=== PATIENT | male | born 1965 | race African-American/Black ===

== ENCOUNTER → 2022-02-28 | Outpatient (CLI) | payer OTHER ==
--- NOTE | 2022-02-28 08:57 | XR ---
EXAMINATION TYPE: XR femur RT DATE OF EXAM: 02/28/2022 COMPARISON: None HISTORY: Left leg and right leg with burning sensation x5-6 years TECHNIQUE: 2 view right femur FINDINGS: Degenerative changes are at the right hip. Some narrowing of the joint space is present. No acute fracture or dislocation is evident. Vascular calcification is noted. IMPRESSION: 1. No acute osseous abnormality right femur. 2. Degenerative changes right hip
--- NOTE | 2022-02-28 08:58 | XR ---
EXAMINATION TYPE: XR Hip Complete RT DATE OF EXAM: 02/28/2022 COMPARISON: None HISTORY: Burning sensation TECHNIQUE: 2 view right hip FINDINGS: Femoral head articulates with the acetabulum. Minimal joint space narrowing may be present. Some femoral head spurring is noted. No acute fracture or dislocation is evident. IMPRESSION: 1. Mild degenerative changes right hip
--- NOTE | 2022-02-28 09:00 | XR ---
EXAMINATION TYPE: XR knee complete LT DATE OF EXAM: 02/28/2022 COMPARISON: None HISTORY: Burning sensation pain TECHNIQUE: 3 view left knee supplemented with sunrise view FINDINGS: Degenerative joint changes are within the left knee. There is mild narrowing of the medial compartment joint space. Medial femoral condylar spurring is present. No joint effusion is evident. P osterior patellar spurring is noted. IMPRESSION: 1. Mild to moderate degenerative changes left knee.
--- NOTE | 2022-02-28 09:02 | XR ---
EXAMINATION TYPE: XR lumbosacral spine min 4V DATE OF EXAM: 02/28/2022 COMPARISON: None HISTORY: Pain right and left leg TECHNIQUE: 5 view lumbar spine FINDINGS: There are 5 lumbar-type vertebral bodies. The pedicles are intact. Mild facet degenerative changes present. No spondylolytic defects are evident. Disc heights are preserved. Vertebral body hei ghts are preserved. Spondylosis is present. MRI can be performed as clinically indicated IMPRESSION: 1. Spondylosis. 2. Mild degenerative facet changes
== END | disposition home or self-care (01) ==
LOC: RADXRMAIN 07:40
PROVIDERS: ATTEND Family Medicine
DX: M47.817 Spondylosis without myelopathy or radiculopathy, lumbosacral region (principal); M17.12 Unilateral primary osteoarthritis, left knee; M16.11 Unilateral primary osteoarthritis, right hip
CPT/HCPCS: 72110; 73502

== ENCOUNTER → 2022-03-02 | Outpatient (CLI) | payer OTHER ==
--- NOTE | 2022-03-08 08:43 | US ---
EXAMINATION TYPE: US arterial LE multi level DATE OF EXAM: 03/02/2022 12:54 PM CLINICAL HISTORY: R20.2 PARESTHESIA OF SKIN. Right leg numbness and tingling History of: Smoker: Yes Hypertension: No Diabetic: No Hyperlipidemia: No TIA/CVA: No Previous Vascular Surgery: No CAD: No GA: No Doppler Waveforms: Right: Triphasic Left: Triphasic Right Brachial Pressure: 122 Left Brachial Pressure: 119 Ankle-Brachial Indices: Right: 1.3 Left: 1.21 Toe Brachial Indices: Right: 0.93 Left: 0.84 IMPRESSION: Normal study.
== END | disposition home or self-care (01) ==
LOC: RADUSWWP 11:42
PROVIDERS: ATTEND Family Medicine
DX: R20.2 Paresthesia of skin (principal); R20.0 Anesthesia of skin; Z87.891 Personal history of nicotine dependence
CPT/HCPCS: 93922

== ENCOUNTER → 2022-04-05 | Outpatient (CLI) | payer OTHER ==
--- NOTE | 2022-04-05 09:47 | MR ---
EXAMINATION TYPE: MR lumbar spine wo con DATE OF EXAM: 04/05/2022 8:34 AM COMPARISON: Radiograph 02/28/2022 CLINICAL INDICATION:Male, 56 years old with history of R20.2 PARESTHESIA OF SKIN Lower back pain, rad iates down right leg. TECHNIQUE: Multi planar, multi sequence imaging was performed utilizing: T1-weighted, T2-weighted, a nd turbo inversion recovery imaging of the lumbar spine. IV Contrast: None. FINDINGS: Alignment: The lumbar vertebral bodies have preserved heights and alignment. Cord: The conus medullaris and the distal spinal cord appear unremarkable with regards to their signa l intensity and morphology. Bones/Discs: Bone signal is within normal limits. No abnormal bony edema on inversion recovery sequen edgar. Multilevel degenerative disc disease is noted and most pronounced at the L5-S1 with disc space n arrowing. Intervertebral disc signal is maintained. T12-L1: No evidence of significant spinal canal stenosis or neural foraminal stenosis. L1-L2: No evidence of significant spinal canal stenosis or neural foraminal stenosis. L2-L3: Disc bulge and facet joint arthropathy result in mild to moderate spinal canal and moderate bi lateral neural foraminal stenosis. L3-L4: Disc bulge and facet joint arthropathy result in [id number] spinal canal and moderate bi lateral neural foraminal stenosis. L4-L5: Disc bulge and facet joint arthropathy result in moderate spinal canal stenosis with bunching of the cauda equina and severe bilateral neural foraminal stenosis. L5-S1: Disc bulge and facet joint arthropathy result in mild spinal canal and severe bilateral neural foraminal stenosis. The disc bulge does closely approximate forming nerves in the spinal canal. Other findings: Right renal high T2 cyst. IMPRESSION: 1. L4-L5 and L5-S1 severe bilateral neural foraminal stenosis. 2. L2-L3 and L3-L4 moderate bilateral neural foraminal stenosis. 3. L4-L5 moderate spinal canal stenosis.
== END | disposition home or self-care (01) ==
LOC: RADMRIMAIN 07:33
PROVIDERS: ATTEND Family Medicine
DX: M48.061 Spinal stenosis, lumbar region without neurogenic claudication (principal); M99.73 Connective tissue and disc stenosis of intervertebral foramina of lumbar region; R20.2 Paresthesia of skin
CPT/HCPCS: 72148

== ENCOUNTER → 2022-08-29 | Outpatient (CLI) | payer BC, OTHER ==
--- NOTE | 2022-08-29 09:03 | XR ---
EXAMINATION TYPE: XR chest 2V DATE OF EXAM: 08/29/2022 8:54 AM COMPARISON: None TECHNIQUE: XR chest 2V Frontal and lateral views of the chest. CLINICAL INDICATION:Male, 57 years old with history of PRE SURGICAL TESTING; FINDINGS: Lungs/Pleura: There is flattening of the diaphragm with increased lucency of the lungs. No evidence o f pneumothorax, pleural effusion or focal consolidation. Pulmonary vascularity: Unremarkable. Heart/mediastinum: Cardiomediastinal silhouette is unremarkable. Musculoskeletal: No acute osseous pathology. IMPRESSION: 1. No acute cardiopulmonary disease process. 2. COPD changes.
[2022-08-29 16:01] LABS: Basophils # (A) 0.03 X 10*3/uL (0.00-0.10); Basophils % (A) 0.8 %; Eosinophils % (A) 5.1 %; HCT 42.9 % (39.6-50.0); HGB 14.1 d/dL (12.0-15.0); Lymphocytes # (A) 1.23 X 10*3/uL (0.90-5.00); Lymphocytes % (A) 31.5 %; MCH 28.1 pg (27.0-32.0); MCHC 32.9 d/dL (32.0-37.0); MCV 85.6 FL (80.0-97.0); Mean Platelet Volume 10.6 FL (9.5-12.2); Monocytes # (A) 0.47 X 10*3/uL (0.20-1.00); NRBC Per 100 WBC 0 X 10*3/uL (0.00-0.01); Neutrophils # (A) 1.97 X 10*3/uL (1.80-7.70); Neutrophils % (A) 50.3 %; Platelet Count 198 X 10*3/uL (140-440); RBC 5.01 X 10*6/uL (4.40-5.60); RDW 14.1 % (11.5-14.5); WBC 3.91 X 10*3/uL (4.50-10.00)
[2022-08-29 16:31] LABS: Blood Urea Nitrogen 16.4 mg/dL (9.0-27.0); Calcium 9.3 mg/dL (8.7-10.3); Carbon Dioxide 26.1 mmol/L (21.6-31.8); Chloride 107 mmol/L (96-109); Glucose 81 mg/dL (70-110); Sodium 144 mmol/L (135-145)
[2022-08-29 21:08] LABS: Appearance,Urine Clear (Clear); Bilirubin,Urine Negative (Negative); Blood,Urine Negative (Negative); Color,Urine Yellow (Yellow); Ketones,Urine Negative (Negative); Nitrite,Urine Negative (Negative); PH, Urine 5.5; Specific Gravity,Urine 1.024 (1.001-1.030); Urobilinogen,Urine 0.2 E.U./DL
== END | disposition home or self-care (01) ==
LOC: LABPAT 08:38
PROVIDERS: ATTEND Urology
DX: Z01.818 Encounter for other preprocedural examination (principal); J44.9 Chronic obstructive pulmonary disease, unspecified; C61 Malignant neoplasm of prostate; I45.19 Other right bundle-branch block; R00.1 Bradycardia, unspecified; R94.31 Abnormal electrocardiogram [ECG] [EKG]; R31.29 Other microscopic hematuria
CPT/HCPCS: 71046; 80048; 81003; 85025; 87086; 93005

== ENCOUNTER 2022-09-05 09:42 | Day surgery (SDC) | payer BC, OTHER ==
[2022-08-29 13:28] VITALS: BMI 22.7
--- NOTE | 2022-09-03 12:51 | P.HPIHPCON ---
History of Present Illness H&P Date: 09/03/22 Chief Complaint: prostate cancer This is a 57-year-old male with history of [place] 7 prostate cancer. Option of a robotic radical prostatectomy versus radiation therapy was discussed with him in detail. He agreed to proceed with a robotic radical prostatectomy. Aware of the risk which includes but not limited to bleeding, infection, urinary incontinence, erectile dysfunction, injury to nearby organs. Risk of anesthesia was also discussed with him. Aware of risk of cancer recurrence and potential of needing additional treatments. Discussed also the need a postoperative surveillance. He understood all the risk and agreed to proceed Consent for Procedure: I have explained the operation/procedure to the patient, including the risks, benefits, side effects, alternative therapies (including not receiving the proposed treatment or service), the likelihood of the patient achieving his/her goals, and potential recuperation problems for the procedure/sedation/analgesia, as well as any blood products, if indicated. I also explained to the patient the risks, benefits and side effects of the alternatives, as well as the risks related to not receiving the proposed procedure, care, treatment, or services. Past Medical History Past Medical History: Cancer, Osteoarthritis (OA) Additional Past Medical History / Comment(s): Current prostate cancer. History of Any Multi-Drug Resistant Organisms: None Reported Additional Past Surgical History / Comment(s): Colonoscopy. Past Anesthesia/Blood Transfusion Reactions: No Reported Reaction Past Psychological History: No Psychological Hx Reported Smoking Status: Current every day smoker Past Alcohol Use History: Occasional Additional Past Alcohol Use History / Comment(s): Started smoking at 15-16 yrs of age, currently smokes 1 pdd every 3 days. Past Drug Use History: None Reported - Past Family History Mother Family Medical History: No Reported History Medications and Allergies Home Medications Medication Instructions Recorded Confirmed Type Meloxicam 7.5 mg PO DAILY 08/29/22 08/29/22 History Allergies Allergy/AdvReac Type Severity Reaction Status Date / Time No Known Allergies Allergy Verified 08/29/22 13:12 Surgical - Exam - General no distress, no pain - Abdomen Abdomen: soft, non tender - Psychiatric oriented to time, oriented to person, oriented to place Assessment and Plan Assessment: -OR for RALP and PLND
[~2022-09-05 09:42] MED LIST: DEXAMETHASONE SOD PHOSPHATE 4 MG/ML 1 ML VIAL IV ONE; HEPARIN SODIUM,PORCINE/PF 5,000 UNIT/0.5 ML SYRINGE SQ PRN; HYDROmorphone 0.5 MG/0.5 ML SYRINGE IVP PRN; LIDOCAINE 1% (10MG/ML) FOR IV START INTRADERMA PRN; MIDAZOLAM 2 MG/2 ML VIAL IV PRN; ONDANSETRON 4 MG/2 ML VIAL IVP ONE
[2022-09-05] MEDS: LACTATED RINGERS 1,000 ML IV SCH (10:15)
[2022-09-05] MEDS ORDERED: MIDAZOLAM 2 MG/2 ML VIAL IVP ONE ×2 (10:34→10:37)
[2022-09-05] MEDS ORDERED: fentaNYL (PF) 50 MCG/ML 2 ML AMP IVP ONE ×2 (10:35→10:37)
--- NOTE | 2022-09-05 10:50 | P.ANPRN ---
Procedure Note - Anesthesia - Nerve Block Performed Bilateral Erector Spinae Single Time Out Performed: Yes Date of Procedure: 09/05/22 Procedure Start Time: 10:34 Procedure Stop Time: 10:44 Location of Patient: PreOp Indication: Acute Post-Operative Pain, Requested by Surgeon (Austin GRIGGS) Specifically requested for management of pain by DrDaniel: Arvind Glaser Sedation Type: Sedate with meaningful contact maintained Preparation: Sterile Prep Position: Prone Needle Types: Pajunk Needle Gauge: 21 Ultrasound used to visualize needle placement: Yes Ultrasound used to observe medication spread: Yes Injectate: 0.5% Ropivacaine (see comment for volume) (20 ML + 10 ML ns + 4MG DEXAMETHASONE PER SIDE) Blood Aspirated: No Pain Paresthesia on Injection Noted: No Resistance on Injection: Normal Image Stored and Saved: Yes Events: Uneventful and Well Tolerated
[2022-09-05] MEDS ORDERED: fentaNYL (PF) 50 MCG/ML 2 ML AMP ONE (11:47)
[2022-09-05] MEDS ORDERED: LIDOCAINE 4% LTA KIT (4 ML) TOPICAL ONE (11:47)
[2022-09-05] MEDS ORDERED: PROPOFOL 10 MG/ML 20 ML VIAL IV ONE (11:47)
[2022-09-05] MEDS ORDERED: DEXAMETHASONE SOD PHOSPHATE 4 MG/ML 1 ML VIAL ONE (11:47)
[2022-09-05] MEDS ORDERED: ROPIVACAINE 5 MG/ML 30 ML VIAL ONE (11:47)
[2022-09-05] MEDS ORDERED: SODIUM CHLORIDE 0.9% (PF) 10 ML VIAL ONE (11:47)
[2022-09-05] MEDS ORDERED: ROCURONIUM 10 MG/ML (5 ML VIAL) IV ONE (11:47)
[2022-09-05] MEDS ORDERED: LIDOCAINE 2% INJ 20 MG/ML (2 ML VIAL) ONE (11:47)
[2022-09-05] MEDS ORDERED: SUCCINYLCHOLINE CHLORIDE 200 MG/10 ML VIAL IV ONE (11:47)
[2022-09-05] MEDS ORDERED: HYDROmorphone (PF) 1 MG/ML ONE (11:47)
[2022-09-05] MEDS ORDERED: MIDAZOLAM 2 MG/2 ML VIAL ONE (11:47)
[2022-09-05] MEDS ORDERED: NEOSTIGMINE 1 MG/ML 10 ML VIAL ONE (11:47)
[2022-09-05] MEDS ORDERED: GLYCOPYRROLATE 0.2 MG/ML 2 ML VIAL ONE (11:47)
[2022-09-05] MEDS ORDERED: ePHEDrine 50 MG/ML 1 ML VIAL ONE (11:47)
[2022-09-05] MEDS ORDERED: ONDANSETRON 4 MG/2 ML VIAL IVP PRN (12:05)
[2022-09-05] MEDS ORDERED: HYDROcodone/APAP 5-325MG 1 EACH TAB PO PRN (12:06)
[2022-09-05] MEDS ORDERED: LACTATED RINGERS 1,000 ML IV ONE (12:26)
[2022-09-05] MEDS ORDERED: BUPIVACAINE (PF) 0.25% 30 ML VIAL SQ ONE ×2 (12:52)
--- NOTE | 2022-09-05 15:13 | P.OP ---
Date of Procedure: 09/05/22 Preoperative Diagnosis: prostate cancer Postoperative Diagnosis: Same Procedure(s) Performed: Robotic radical prostatectomy, pelvic lymph node dissection Implants: none Anesthesia: JOSÉ LUISA Surgeon: Arvind Glaser Estimated Blood Loss (ml): 100 Pathology: other (Prostate, bilateral seminal vesicle, bilateral pelvic lymph nodes) Condition: stable Disposition: PACU Indications for Procedure: This is a 57-year-old male with history of [place] 7 prostate cancer. Option of a robotic radical prostatectomy versus radiation therapy was discussed with him in detail. He agreed to proceed with a robotic radical prostatectomy. Aware of the risk which includes but not limited to bleeding, infection, urinary incontinence, erectile dysfunction, injury to nearby organs. Risk of anesthesia was also discussed with him. Aware of risk of cancer recurrence and potential of needing additional treatments. Discussed also the need a postoperative surveillance. He understood all the risk and agreed to proceed Operative Findings: uncomplicated robotic radical prostatectomy with pelvic lymph node dissection Description of Procedure: After preoperative antibiotics were started, the patient was taken to the operating room. Anesthesia was induced and the patient was placed in a supine position, with adequate padding of the pressure points, shoulders, back, legs and arms. He was then prepped and draped in the standard fashion. A critical pause was performed using two patient identifiers. A 16F cantu catheter was placed to gravity drainage. A pneumo-peritoneum was created with placement of a Veress needle to 20 mm Hg without complication, and a 8 Fr trocar was placed above the umbillicus. Under direct vision a 8mm robotic ports was placed lateral to each rectus slightly below the camera port. The left iliac fossa 8mm port was placed. The right housing assistant property manager right iliac fossa 12mm port and right paramedian 5mm portwere placed. After the patient was placed in the trendelenberg position, the robot was then docked to the 8mm robotic ports and then each robotic arm and tower was checked in relation to the patient's legs and hands to avoid inadvertent compression. The peritoneal cavity was inspected. An inverted U-shaped incision began laterally to the left medial umbilical ligament and extended high across the midline to the right umbilical ligament. The limbs of the "U" extended to the level of the vasa on both sides. We next developed the preperitoneal space and the space of Retzius. Cautery was used to dissected the bladder away from the prostate. After the anterior bladder neck was incised and the bladder entered the the posterior bladder neck was exposed and the ureteral orifces identified. The posterior bladder neck was then incised and dissected away from the prostate. The vas and the seminal vesicles were now exposed and dissected to their insertions into the prostate and were not spared. The posterior layer of the Denonvillier's fascia was incised to enter ivone the plane between prostate and perirectal fat. Each lateral pedicle was controlled with clips and cautery for hemostasis. Partial nerve preservation was performed bilaterally. The puboprostatic l igament was incised where it inserted into the apex of the prostate and a plane between urethra and dorsal venous complex developed to expose the anterior urethral surface. The anterior wall of the urethra was transected with the cut setting a few millimeters distal to the apex of the prostate. The dorsal vein was ligated using 3-0 V lock bilateral obturator and external iliac lymph node packets were carefully dissected after careful visualization of the hypogastric artery and obturator nerve. There was careful attention paid to hemostasis with judicious use of cautery. Of note patient had very limited lymphatic tissue along the left side The urethrovesical anastomosis was performed . the posterior denovillers was reapproximated using 3-0 V lock. A 9 and 6 inch 3-0 V-Lock suture was used to anastomose the urethra and bladder, starting at the 6:00 posterior position. Mucosa was secured in every stitch, to ensure a mucosa to mucosa anastomosis. The stitch was regularly cinched and the anastomosis tightened. Care was taken to not violate the ureteral orifices. The Cantu catheter was advanced, the bladder filled, and the anastomosis was tested, as described above. Anastomsis was watertight at 150 mL The periumbilical fascia was closed with 1-0-PDS suture in figure of 8 fashion All ports were closed with a subcuticular 4-0 monocryl and Dermabond. Sponge, instrument, and needle counts were correct at the end of the case x2. All specimens including prostate and lymph nodes were sent to pathology for diagnosis and will be available in a week. The patient tolerated the surgery well and without complication. He awoke without difficulty and was taken to the recovery room in stable condition
[2022-09-05] MEDS: KETOROLAC 15 MG/ML 1 ML VIAL IVP SCH ×2 (16:10→23:52)
[2022-09-05] MEDS: DEXTROSE 5%-0.45% NACL 1,000 ML IV SCH ×2 (17:54→18:07)
[2022-09-05] MEDS: HEPARIN SODIUM,PORCINE/PF 5,000 UNIT/0.5 ML SYRINGE SQ SCH ×2 (17:54→23:52)
[2022-09-05] MEDS: HYDROmorphone 1 MG/ML 1 ML SYRINGE IVP PRN ×2 (18:53→21:18)
[2022-09-06] MEDS: DEXTROSE 5%-0.45% NACL 1,000 ML IV SCH ×2 (01:55→11:17)
[2022-09-06] MEDS: HYDROmorphone 1 MG/ML 1 ML SYRINGE IVP PRN (01:56)
[2022-09-06] MEDS: KETOROLAC 15 MG/ML 1 ML VIAL IVP SCH ×2 (05:52→11:16)
[2022-09-06] MEDS: LACTATED RINGERS 1,000 ML IV SCH (05:54)
[2022-09-06 07:24] VITALS: BP 123/64; PULSE 63; RESP 17; TEMP 98.6
[2022-09-06] MEDS: HEPARIN SODIUM,PORCINE/PF 5,000 UNIT/0.5 ML SYRINGE SQ SCH (07:53)
--- NOTE | 2022-09-06 11:44 | P.DS ---
Providers Attending physician: Arvind Glaser MD Primary care physician: [facility] Hospital Course: This is a 57-year-old history of prostate cancer. Underwent a robotic radical prostatectomy on September 05. Please see op note dated for surgery detail. Patient was admitted to the hospital postoperatively. Was discharged home on postop day #1, at time of discharge he was tolerating a diet, ambulating, and pain was controlled Plan - Discharge Summary Discharge Rx Participant: No New Discharge Prescriptions: New Ciprofloxacin HCl [Cipro] 250 mg PO Q12HR #6 tablet HYDROcodone/APAP 5-325MG [[place] 5-325] 1 tab PO Q6HR PRN 3 Days #6 tab PRN Reason: Pain Ketorolac [Toradol] 10 mg PO Q6HR #15 tab No Action Meloxicam 7.5 mg PO DAILY Discharge Medication List Meloxicam 7.5 mg PO DAILY 08/29/22 [History] Ciprofloxacin HCl [Cipro] 250 mg PO Q12HR #6 tablet 09/06/22 [Rx] HYDROcodone/APAP 5-325MG [[place] 5-325] 1 tab PO Q6HR PRN 3 Days #6 tab 09/06/22 [Rx] Ketorolac [Toradol] 10 mg PO Q6HR #15 tab 09/06/22 [Rx]
== END 2022-09-06 13:42 | disposition home or self-care (01) ==
LOC: OR 09:42 → 5NMEDONC 15:35 → OR 09-06 13:42
PROVIDERS: ATTEND Urology
DX: C61 Malignant neoplasm of prostate (principal); M19.90 Unspecified osteoarthritis, unspecified site; F17.210 Nicotine dependence, cigarettes, uncomplicated; Z86.59 Personal history of other mental and behavioral disorders; Z98.890 Other specified postprocedural states; Z79.899 Other long term (current) drug therapy
CPT/HCPCS: 55866; 38571; 64999; 86900; 86901; 86850; J2250; J1100; J0690; J2405; J3010; J1170 ×2; J1885 ×2; J1644 ×2

== ENCOUNTER 2022-11-15 08:26 | Day surgery (SDC) | payer BC, OTHER ==
[2022-11-06 14:29] VITALS: BMI 22.7
[~2022-11-15 08:26] MED LIST changes: -DEXAMETHASONE SOD PHOSPHATE 4 MG/ML 1 ML VIAL IV ONE; -HEPARIN SODIUM,PORCINE/PF 5,000 UNIT/0.5 ML SYRINGE SQ PRN; -HYDROmorphone 0.5 MG/0.5 ML SYRINGE IVP PRN; +LACTATED RINGERS 1,000 ML IV SCH; -MIDAZOLAM 2 MG/2 ML VIAL IV PRN; -ONDANSETRON 4 MG/2 ML VIAL IVP ONE; +ONDANSETRON 4 MG/2 ML VIAL IVP PRN
[2022-11-15] MEDS ORDERED: PROPOFOL 10 MG/ML 20 ML VIAL IV ONE (09:09)
--- NOTE | 2022-11-15 09:13 | P.GSHP ---
History of Present Illness H&P Date: 11/15/22 Chief Complaint: Screening Colonoscopy This a 57-year-old male presents today for screening colonoscopy. Patient is a history of iron deficiency. Past Medical History Past Medical History: Cancer, Osteoarthritis (OA) Additional Past Medical History / Comment(s): Current prostate cancer. History of Any Multi-Drug Resistant Organisms: None Reported Additional Past Surgical History / Comment(s): Colonoscopy. Past Anesthesia/Blood Transfusion Reactions: No Reported Reaction Additional Past Alcohol Use History / Comment(s): Started smoking at 15-16 yrs of age, currently smokes 1 pdd every 3 days. - Past Family History Mother Family Medical History: No Reported History Medications and Allergies Home Medications Medication Instructions Recorded Confirmed Type Cholecalciferol [Vitamin D3 (25 25 mcg PO DAILY 11/06/22 11/06/22 History Mcg = 1000 Iu)] HYDROcodone/APAP 7.5-325MG [[place] 1 tab PO BID PRN 11/06/22 11/06/22 History 7.5-325] Multivit-Mins/Iron/Folic/Lycop 1 each PO DAILY 11/06/22 11/06/22 History [Centrum Men's Tablet] Sildenafil Citrate [Viagra] 50 mg PO DIRECTED 11/06/22 11/06/22 History Allergies Allergy/AdvReac Type Severity Reaction Status Date / Time No Known Allergies Allergy Verified 11/06/22 14:09 Surgical - Exam Vital Signs Temp Pulse Resp BP Pulse Ox 97.2 F L 69 20 118/66 98 11/15/22 08:55 11/15/22 08:55 11/15/22 08:55 11/15/22 08:55 11/15/22 08:55 - General well developed, well nourished, no distress - Eyes PERRL - ENT normal pinna - Neck no masses - Respiratory normal expansion - Cardiovascular Rhythm: regular - Abdomen Abdomen: soft, non tender Assessment and Plan Assessment: We'll perform screening colonoscopy.
--- NOTE | 2022-11-15 09:21 | P.OP ---
Date of Procedure: 11/15/22 Preoperative Diagnosis: Screening colonoscopy Postoperative Diagnosis: Normal colon Procedure(s) Performed: Colonoscopy Anesthesia: MAC Surgeon: Ho Junior Pathology: none sent Condition: stable Disposition: PACU Description of Procedure: PROCEDURE: The patient was placed on the endoscopy table in the lateral position. Digital rectal examination was performed which revealed no abnormalities. The prostate was symmetrical without nodules. Flexible colonoscope was then placed in the patient's anus and passed throughout the entire colon. The ileocecal valve was visualized. The cecum, ascending, transverse, descending and sigmoid colon were normal. The rectum was normal as well. There were no masses, polyps or diverticula noted in the entire colon. SUMMARY OF FINDINGS: Normal colonoscopy.
[2022-11-15 15:58] VITALS: BP 112/72; PULSE 64; RESP 20; TEMP 97.2
== END 2022-11-15 10:12 | disposition home or self-care (01) ==
LOC: ORWHC2ENDO 08:26
PROVIDERS: ATTEND Surgery
DX: Z12.11 Encounter for screening for malignant neoplasm of colon (principal); M19.90 Unspecified osteoarthritis, unspecified site; F17.210 Nicotine dependence, cigarettes, uncomplicated; Z85.46 Personal history of malignant neoplasm of prostate; Z79.899 Other long term (current) drug therapy
CPT/HCPCS: 45378; J2704

== ENCOUNTER → 2023-03-22 | Outpatient (CLI) | payer OTHER ==
--- NOTE | 2023-03-22 12:09 | CT ---
EXAMINATION TYPE: CT abdomen pelvis wo con DATE OF EXAM: 03/22/2023 HISTORY: weightless x 2months, h/o prostate CA CT DLP: 244.8 mGycm. Automated Exposure Control for Dose Reduction was Utilized. TECHNIQUE: CT scan of the abdomen and pelvis is performed with oral but without IV contrast. COMPARISON: NONE FINDINGS: Within the limitations of a non-contrast study, the following observations are made. LUNG BASES: Slightly elevated left hemidiaphragm. Coronary artery calcification is present. LIVER/GB: No significant abnormality is appreciated. PANCREAS: No significant abnormality is seen. SPLEEN: No significant abnormality is seen. ADRENALS: No significant abnormality is seen. KIDNEYS: There is 3.7 cm simple appearing thin-walled cyst in upper pole of the right kidney. No stephanie l calculi or hydronephrosis is seen bilaterally. BOWEL: Oral contrast extends to the rectum. No abnormal small or large bowel dilatation. GENITAL ORGANS: Prostate gland not significantly identified and may be surgically absent. LYMPH NODES: No greater than 1cm abdominal or pelvic lymph nodes are appreciated. Nonspecific Promine nt but subcentimeter lymph nodes throughout the groin region bilaterally. OSSEOUS STRUCTURES: Mild to moderate narrowing and spurring in both hip joints. No suspicious focal l ytic or sclerotic lesion. Multilevel facet arthropathy in the mid to lower lumbar spine. OTHER: Mild to moderate calcified plaque of the aorta extends into branch vessels. IMPRESSION: Suboptimal study without IV contrast. No obvious suspicious mass or adenopathy to suggest metastatic disease on noncontrast study.
== END | disposition home or self-care (01) ==
LOC: RADCTMAIN 09:43
PROVIDERS: ATTEND Family Medicine
DX: C61 Malignant neoplasm of prostate (principal); E61.1 Iron deficiency; R63.4 Abnormal weight loss
CPT/HCPCS: 74176

== ENCOUNTER → 2023-04-11 | Outpatient (CLI) | payer OTHER ==
--- NOTE | 2023-04-11 08:20 | CTL ---
EXAMINATION TYPE: CT Low Dose Lung DATE OF EXAM: 04/11/2023 6:39 AM CLINICAL INDICATION:Male, 57 years old with history of F17.210 hx tobacco use; nicotine dependence , history of tobacco use. COMPARISON: None. TECHNIQUE: Multiple axial non-contrast scans were obtained from approximately the lung apices through the upper abdomen. Coronal and sagittal reformatted images were obtained. Low dose technique was uti lized. CT DLP: 69.1 mGycm, Automated exposure control for dose reduction was used. CT Contrast: Contrast used: None Oral contrast used: None FINDINGS: ======== Lack of intravenous contrast and low dose technique limits the evaluation of the vascular and soft ti ssue structures. LUNGS: No evidence of pulmonary fibrosis. No evidence of focal consolidation, pneumothorax or pleural effusion. Paraseptal and centrilobular emphysema changes noted. Nodules: RUL: None. RML: None. RLL: None. DAMEON: None. LLL: None. AIRWAY: Patent and unremarkable. HEART: Size within normal limits. Mild coronary artery calcifications. MEDIASTINUM: No gross evidence of adenopathy. VASCULATURE: No aortic aneurysm. MUSCULOSKELETAL: No acute osseous abnormalities SOFT TISSUES/LYMPH NODES: Unremarkable. LOWER NECK: No significant findings. UPPER ABDOMEN: No significant findings. IMPRESSION: 1. No clinically significant pulmonary nodules. 2. Moderate emphysema changes. CT LUNG RAD AND CT CHEST RECOMMENDATION: Lung-Rad 1 Negative: Continue annual screening with LDCT in 12 months. S Modifier (other clinically significant findings): None Recommend smoking cessation (if current smoker), or continuation of smoking cessation (if prior smoke r). Annual screening for lung cancer with low-dose computed tomography is recommended in adults ages 55 to 77 years who have a 30 pack-year smoking history and currently smoke or have quit within the pa st 15 years. Screening should be discontinued once a person has not smoked for 15 years or develops a health problem that substantially limits life expectancy or the ability or willingness to have curat coco lung surgery. Lung rads 2021 [email or web address]
== END | disposition home or self-care (01) ==
LOC: RADCTMAIN 06:17
PROVIDERS: ATTEND Family Medicine
DX: Z12.2 Encounter for screening for malignant neoplasm of respiratory organs (principal); J43.2 Centrilobular emphysema; F17.210 Nicotine dependence, cigarettes, uncomplicated
CPT/HCPCS: 71271

== ENCOUNTER → 2023-12-18 | Outpatient (CLI) | payer OTHER ==
--- NOTE | 2023-12-18 08:41 | XR ---
EXAMINATION TYPE: XR hand complete LT, XR forearm LT DATE OF EXAM: 12/18/2023 8:24 AM CLINICAL INDICATION: Male, 58 years old with history of R20.2 Arm Paresthesia; PHH COMPARISON: None TECHNIQUE: XR hand complete LT, XR forearm LT Frontal, lateral and oblique views were obtained. FINDINGS: Normal alignment of the visualized joints. No acute osseous pathology is identified. No e vidence of soft tissue swelling. No significant degeneration. Left radius fixation plate appears inta ct. IMPRESSION: No acute osseous pathology. [facility], , 12/18/2023 8:39 AM
--- NOTE | 2023-12-18 08:44 | XR ---
EXAMINATION TYPE: XR cervical spine comp DATE OF EXAM: 12/18/2023 8:24 AM CLINICAL INDICATION: Male, 58 years old with history of R20.2 Arm Paresthesia; COMPARISON: 12/18/2023. TECHNIQUE: The cervical spine was imaged in frontal, lateral, odontoid and bilateral oblique. FINDINGS: The osseous structures show normal alignment without evidence of an acute fracture. There are osteoph ytes noted throughout the cervical spine on the anterior and lateral aspects of the vertebral bodies. The intervertebral disk spaces are narrowed at multiple levels. Pedicles are intact. Soft tissues a re within normal limits. The odontoid appears intact. IMPRESSION: 1. No fracture or dislocation. 2. Mild degenerative disc disease changes of the cervical spine. [facility], , 12/18/2023 8:42 AM
== END | disposition home or self-care (01) ==
LOC: RADXRMAIN 07:36
PROVIDERS: ATTEND Family Medicine
DX: M50.30 Other cervical disc degeneration, unspecified cervical region (principal)
CPT/HCPCS: 72050

== ENCOUNTER 2024-05-14 08:51 | Emergency (ER) | payer OTHER ==
--- NOTE | 2024-05-14 09:04 | ED ---
Upper Extremity HPI - General Chief Complaint: Extremity Injury, Upper Stated Complaint: right hand injury Time Seen by Provider: 05/14/24 08:53 Source: patient, RN notes reviewed Mode of arrival: ambulatory Limitations: no limitations - History of Present Illness Initial Comments: 58-year-old male presents emergency department with chief complaint of right thumb injury. 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 - Related Data Home Medications Medication Instructions Recorded Confirmed Cholecalciferol [Vitamin D3 (25 25 mcg PO DAILY 11/06/22 11/06/22 Mcg = 1000 Iu)] HYDROcodone/APAP 7.5-325MG [[place] 1 tab PO BID PRN 11/06/22 11/06/22 7.5-325] Multivit-Mins/Iron/Folic/Lycop 1 each PO DAILY 11/06/22 11/06/22 [Centrum Men's Tablet] Sildenafil Citrate [Viagra] 50 mg PO DIRECTED 11/06/22 11/06/22 Allergies Allergy/AdvReac Type Severity Reaction Status Date / Time No Known Allergies Allergy Verified 05/14/24 08:54 Review of Systems ROS Statement: Those systems with pertinent positive or pertinent negative responses have been documented in the HPI. ROS Other: All systems not noted in ROS Statement are negative. Past Medical History Past Medical History: Cancer, Osteoarthritis (OA) Additional Past Medical History / Comment(s): Current prostate cancer. History of Any Multi-Drug Resistant Organisms: None Reported Additional Past Surgical History / Comment(s): Colonoscopy. Past Anesthesia/Blood Transfusion Reactions: No Reported Reaction Past Psychological History: No Psychological Hx Reported Smoking Status: Current every day smoker Past Alcohol Use History: Occasional Past Drug Use History: None Reported - Past Family History Mother Family Medical History: No Reported History General Exam Limitations: no limitations General appearance: alert, in no apparent distress Head exam: Present: atraumatic, normocephalic, normal inspection Neck exam: Present: normal inspection. Absent: tenderness, meningismus, lymphadenopathy Respiratory exam: Present: normal lung sounds bilaterally. Absent: respiratory distress, wheezes, rales, rhonchi, stridor Cardiovascular Exam: Present: regular rate, normal rhythm, normal heart sounds. Absent: systolic murmur, diastolic murmur, rubs, gallop, clicks Extremities exam: Present: other (Right thumb there is small subungual hematoma, there is mild tenderness from the interphalangeal joint to the distal tip neurovascular intact) Course Vital Signs 05/14/24 08:52 Temperature 97.6 F Pulse Rate 80 Respiratory 18 Rate Blood Pressure 142/84 O2 Sat by Pulse 98 Oximetry Medical Decision Making - Medical Decision Making Was pt. sent in by a medical professional or institution (CYNTHIA Banerjee, BENDER HELPER, urgent care, hospital, or senior care...) When possible be specific @ -No Did you speak to anyone other than the patient for history (EMS, parent, family, police, friend...)? What history was obtained from this source @ -No Did you review nursing and triage notes (agree or disagree)? Why? @ -I reviewed and agree with nursing and triage notes Were old charts reviewed (outside hosp., previous admission, EMS record, old EKG, old radiological studies, urgent care reports/EKG's, senior care records)? Report findings @ -No old charts were reviewed Differential Diagnosis (chest pain, altered mental status, abdominal pain women, abdominal pain men, vaginal bleeding, weakness, fever, dyspnea, syncope, headache, dizziness, GI bleed, back pain, seizure, CVA, palpatations, mental health, musculoskeletal)? @ -Subungual hematoma, thumb fracture EKG interpreted by me (3pts min.). @ -None X-rays interpreted by me (1pt min.). @ -X ray right thumb shows no acute fracture mild osteoarthritis CT interpreted by me (1pt min.). @ -None done U/S interpreted by me (1pt. min.). @ -None done What testing was considered but not performed or refused? (CT, X-rays, U/S, labs)? Why? @ -None What meds were considered but not given or refused? Why? @ -None Did you discuss the management of the patient with other professionals (professionals i.e. CYNTHIA Banerjee, BENDER HELPER, lab, RT, psych nurse, community mental health social worker, ceramics instructor, teacher, staff antisubmarine officer, case work aide)? Give summary @ -No Was smoking cessation discussed for >3mins.? @ -No Was critical care preformed (if so, how long)? @ -No Were there social determinants of health that impacted care today? How? (Homelessness, low income, unemployed, alcoholism, drug addiction, transportation, low edu. Level, literacy, decrease access to med. care, half-way, rehab)? @ -No Was there de-escalation of care discussed even if they declined (Discuss DNR or withdrawal of care, Hospice)? DNR status @ -No What co-morbidities impacted this encounter? (DM, HTN, Smoking, COPD, CAD, Cancer, CVA, ARF, Chemo, Hep., AIDS, mental health diagnosis, sleep apnea, morbid obesity)? @ -None Was patient admitted / discharged? Hospital course, mention meds given and rou te, prescriptions, significant lab abnormalities, going to OR and other pertinent info. @ -Discharge patient has a small old subungual hematoma there is no acute fracture patient discharged in stable condition return parameters tamar. Undiagnosed new problem with uncertain prognosis? @ -No Drug Therapy requiring intensive monitoring for toxicity (Heparin, Nitro, Insulin, Cardizem)? @ -No Were any procedures done? @ -No Diagnosis/symptom? @ -Thumb pain, subungual hematoma Acute, or Chronic, or Acute on Chronic? @ -Acute Uncomplicated (without systemic symptoms) or Complicated (systemic symptoms)? @ -Uncomplicated Side effects of treatment? @ -No Exacerbation, Progression, or Severe Exacerbation? @ -No Poses a threat to life or bodily function? How? (Chest pain, [place], [place], pneumonia, PE, COPD, DKA, ARF, appy, cholecystitis, CVA, Diverticulitis, Homicidal, Suicidal, threat to staff... and all critical care pts) @ -No Disposition Clinical Impression: Subungual hematoma, Thumb pain Disposition: HOME SELF-CARE Condition: Stable Instructions (If sedation given, give patient instructions): Subungual Hematoma (ED) Additional Instructions: Please return to the Emergency Department if symptoms worsen or any other concerns. Is patient prescribed a controlled substance at d/c from ED?: No Referrals: Maya Villaseñor MD [Primary Care Provider] - 1-2 days Time of Disposition: 09:25
[2024-05-14] MEDS: ACET/COD 300 MG/30 MG STARTER PACK 6 TAB BTL PO STA (09:36)
[2024-05-14 09:39] VITALS: BP 140/86; PULSE 76; RESP 20; TEMP 98
--- NOTE | 2024-05-14 09:44 | XR ---
EXAMINATION TYPE: XR finger RT DATE OF EXAM: 05/14/2024 9:25 AM COMPARISON: None CLINICAL INDICATION: Male, 58 years old with history of 1st digit pain; PHH, pain TECHNIQUE: XR finger RT 3 views were obtained. FINDINGS: Normal alignment of the visualized joints. No acute osseous pathology is identified. No e vidence of soft tissue swelling. Multifocal degeneration changes with joint space narrowing and osteo phyte formation of the joints of the first digit. IMPRESSION: No acute osseous pathology. Mild to moderate osteoarthrosis throughout the joints of the first digit. [facility], , 05/14/2024 9:42 AM
== END 2024-05-14 09:37 | disposition home or self-care (01) ==
LOC: EC 08:51
DX: S60.011A Contusion of right thumb without damage to nail, initial encounter (principal); F17.200 Nicotine dependence, unspecified, uncomplicated; W22.8XXA Striking against or struck by other objects, initial encounter; Y99.0 Civilian activity done for income or pay; Y92.63 Factory as the place of occurrence of the external cause
CPT/HCPCS: 99283

== ENCOUNTER 2024-05-18 08:55 | Emergency (ER) | payer OTHER ==
[2024-05-18 09:03] VITALS: RESP 20
--- NOTE | 2024-05-18 09:48 | ED ---
Extremity Problem HPI - General Chief complaint: Extremity Problem,Nontraumatic Stated complaint: Recheck-R hand injury Time Seen by Provider: 05/18/24 09:48 Source: patient, RN notes reviewed, old records reviewed Mode of arrival: ambulatory Limitations: no limitations - History of Present Illness Initial comments: Quick note: 58-year-old male presented the ER for evaluation of right thumb injury. Patient was seen here on 05-14-2024 after he slammed his right thumb in a truck door. Patient reports that recently started draining red pus. - Related Data Home Medications Medication Instructions Recorded Confirmed Cholecalciferol [Vitamin D3 (25 25 mcg PO DAILY 11/06/22 11/06/22 Mcg = 1000 Iu)] HYDROcodone/APAP 7.5-325MG [[place] 1 tab PO BID PRN 11/06/22 11/06/22 7.5-325] Multivit-Mins/Iron/Folic/Lycop 1 each PO DAILY 11/06/22 11/06/22 [Centrum Men's Tablet] Sildenafil Citrate [Viagra] 50 mg PO DIRECTED 11/06/22 11/06/22 Previous Rx's Medication Instructions Recorded Cephalexin [Keflex] 500 mg PO Q6HR #40 cap 05/18/24 Allergies Allergy/AdvReac Type Severity Reaction Status Date / Time No Known Allergies Allergy Verified 05/18/24 09:03 Review of Systems ROS Statement: Those systems with pertinent positive or pertinent negative responses have been documented in the HPI. ROS Other: All systems not noted in ROS Statement are negative. Past Medical History Past Medical History: Cancer, Osteoarthritis (OA) Additional Past Medical History / Comment(s): Current prostate cancer. History of Any Multi-Drug Resistant Organisms: None Reported Additional Past Surgical History / Comment(s): Colonoscopy. Past Anesthesia/Blood Transfusion Reactions: No Reported Reaction Past Psychological History: No Psychological Hx Reported Smoking Status: Current every day smoker Past Alcohol Use History: Occasional Past Drug Use History: None Reported - Past Family History Mother Family Medical History: No Reported History General Exam - General Exam Comments Initial Comments: Visual Physical Exam Vital signs reviewed General: Well-appearing, nontoxic, no acute distress. Head: Normocephalic, atraumatic Eyes: PERRLA, EOMI ENT: Airway patent Chest: Nonlabored breathing Skin: No visual rash, normal skin tone Neuro: Alert and oriented 3 Musculoskeletal: No gross abnormalities Limitations: no limitations Course Vital Signs 05/18/24 09:01 Temperature 97.9 F Pulse Rate 66 Respiratory 20 Rate Blood Pressure 147/76 O2 Sat by Pulse 99 Oximetry Medical Decision Making - Medical Decision Making I performed the quick note portion of this chart. Electronically signed by Jumana Lubin PA-C Disposition Clinical Impression: Thumb pain Disposition: HOME SELF-CARE Condition: Stable Additional Instructions: Follow-up with PCP in the next 1-2 days. Return to the ER for any new or worsening concerns. Take Keflex as prescribed. Prescriptions: Cephalexin [Keflex] 500 mg PO Q6HR #40 cap Is patient prescribed a controlled substance at d/c from ED?: No Referrals: Maya Villaseñor MD [Primary Care Provider] - 1-2 days Time of Disposition: 11:07
[2024-05-18 11:21] VITALS: BP 141/71; PULSE 72; TEMP 98.1
== END 2024-05-18 11:16 | disposition home or self-care (01) ==
LOC: EC 08:55
DX: S69.91XA Unspecified injury of right wrist, hand and finger(s), initial encounter (principal); M79.641 Pain in right hand; F17.200 Nicotine dependence, unspecified, uncomplicated; W22.09XA Striking against other stationary object, initial encounter
CPT/HCPCS: 87070; 87205; 99283

== ENCOUNTER 2024-08-01 08:27 | Emergency (ER) | payer OTHER ==
[2024-08-01 08:50] VITALS: RESP 16; TEMP 98
[2024-08-01] MEDS: KETOROLAC 15 MG/ML 1 ML VIAL IM STA (09:51)
[2024-08-01] MEDS: CYCLOBENZAPRINE 10 MG TAB PO STA (09:51)
--- NOTE | 2024-08-01 10:09 | XR ---
EXAMINATION TYPE: XR shoulder complete RT DATE OF EXAM: 08/01/2024 10:00 AM INDICATION: Patient age:Male; 59 years old; Reason for study: right shoulder pain, ? ac separation; pain COMPARISON: Chest radiograph 08/29/2022 TECHNIQUE: The right shoulder was examined in AP, internally rotated and scapular Y projections. . FINDINGS: No evidence of acute osseous pathology, joint dislocation, or soft tissue swelling. AC joint arthropa thy with joint space narrowing. No AC joint separation identified. The remaining portions of the visu alized chest are unremarkable. IMPRESSION: 1. No acute osseous pathology. 2. Mild right AC joint arthropathy. No AC joint separation identified. [facility], , 08/01/2024 10:07 AM
--- NOTE | 2024-08-01 10:51 | ED ---
Upper Extremity HPI - General Chief Complaint: Extremity Injury, Upper Stated Complaint: Right shoulder pain Time Seen by Provider: 08/01/24 08:41 Source: patient Mode of arrival: ambulatory Limitations: no limitations - History of Present Illness Initial Comments: 59-year-old male presents to the emergency department complaining of right shou lder pain. States is been going on for the past 2 weeks. 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 Pain is reproducible upon movement. He denies associated chest pain or shortness of breath. Patient is right-hand dominant. He has not taken anything at home for symptoms. Does have motion but states he has not taken any of it. He denies any cardiac history. No other alleviating, precipitating roughing factors - Related Data Home Medications Medication Instructions Recorded Confirmed Cholecalciferol [Vitamin D3 (25 25 mcg PO DAILY 11/06/22 11/06/22 Mcg = 1000 Iu)] HYDROcodone/APAP 7.5-325MG [[place] 1 tab PO BID PRN 11/06/22 11/06/22 7.5-325] Multivit-Mins/Iron/Folic/Lycop 1 each PO DAILY 11/06/22 11/06/22 [Centrum Men's Tablet] Sildenafil Citrate [Viagra] 50 mg PO DIRECTED 11/06/22 11/06/22 Previous Rx's Medication Instructions Recorded Cephalexin [Keflex] 500 mg PO Q6HR #40 cap 05/18/24 Cyclobenzaprine [Flexeril] 10 mg PO TID PRN #30 tab 08/01/24 Allergies Allergy/AdvReac Type Severity Reaction Status Date / Time No Known Allergies Allergy Verified 08/01/24 08:30 Review of Systems ROS Statement: Those systems with pertinent positive or pertinent negative responses have been documented in the HPI. ROS Other: All systems not noted in ROS Statement are negative. Past Medical History Past Medical History: Cancer, Osteoarthritis (OA) Additional Past Medical History / Comment(s): Current prostate cancer. History of Any Multi-Drug Resistant Organisms: None Reported Additional Past Surgical History / Comment(s): Colonoscopy. Past Anesthesia/Blood Transfusion Reactions: No Reported Reaction Past Psychological History: No Psychological Hx Reported Smoking Status: Current every day smoker Past Alcohol Use History: Occasional Past Drug Use History: None Reported - Past Family History Mother Family Medical History: No Reported History General Exam Limitations: no limitations General appearance: alert, in no apparent distress Head exam: Present: atraumatic, normocephalic, normal inspection Eye exam: Present: normal appearance, PERRL, EOMI. Absent: scleral icterus, conjunctival injection, periorbital swelling ENT exam: Present: normal exam, mucous membranes moist Neck exam: Present: normal inspection. Absent: tenderness, meningismus, lymphadenopathy Respiratory exam: Present: normal lung sounds bilaterally. Absent: respiratory distress, wheezes, rales, rhonchi, stridor Cardiovascular Exam: Present: regular rate, normal rhythm, normal heart sounds. Absent: systolic murmur, diastolic murmur, rubs, gallop, clicks GI/Abdominal exam: Present: soft, normal bowel sounds. Absent: distended, tenderness, guarding, rebound, rigid Extremities exam: Present: full ROM, tenderness (To palpation of the right AC joint. Pain is elicited with adduction of the right shoulder), normal capillary refill. Absent: pedal edema, joint swelling, calf tenderness Back exam: Present: normal inspection Neurological exam: Present: alert, oriented X3, CN II-XII intact Psychiatric exam: Present: normal affect, normal mood Skin exam: Present: warm, dry, intact, normal color. Absent: rash Course Vital Signs 08/01/24 08/01/24 08/01/24 08:28 08:30 11:05 Temperature 97.6 F 98.0 F Pulse Rate 83 79 65 Respiratory 18 16 16 Rate Blood Pressure 117/68 114/69 110/60 O2 Sat by Pulse 100 98 98 Oximetry Medical Decision Making - Medical Decision Making Was pt. sent in by a medical professional or institution (, PA, COMMUNICATIONS FIELD TECHNICIAN, urgent care, hospital, or longterm...) When possible be specific @ -No Did you speak to anyone other than the patient for history (EMS, parent, family, police, friend...)? What history was obtained from this source @ -Spoke with for history Did you review nursing and triage notes (agree or disagree)? Why? @ -I reviewed and agree with nursing and triage notes Were old charts reviewed (outside hosp., previous admission, EMS record, old EKG, old radiological studies, urgent care reports/EKG's, longterm records)? Report findings @ -No old charts were reviewed Differential Diagnosis (chest pain, altered mental status, abdominal pain women, abdominal pain men, vaginal bleeding, weakness, fever, dyspnea, syncope, headache, dizziness, GI bleed, back pain, seizure, CVA, palpatations, mental health, musculoskeletal)? @ -Differential Musculoskeletal Muscular strain, contusion, ligament sprain, fracture, arthritis, septic arthritis, bursitis, cellulitis, muscle spasm, nerve compression, DVT, arterial occlusion, herpes zoster, electrolyte abnormality, tumor.... This is not meant to be in all inclusive list EKG interpreted by me (3pts min.). @ -Yes and demonstrates sinus rhythm with a rate of 70. WI interval 149. QRS 97. QTc of 407. No acute ST segment elevation or depression X-rays interpreted by me (1pt min.). @ -Yes which demonstrates arthritis CT interpreted by me (1pt min.). @ -None done U/S interpreted by me (1pt. min.). @ -None done What testing was considered but not performed or refused? (CT, X-rays, U/S, labs)? Why? @ -None What meds were considered but not given or refused? Why? @ -None Did you discuss the management of the patient with other professionals (professionals i.e. , PA, COMMUNICATIONS FIELD TECHNICIAN, lab, RT, psych nurse, social worker aide, entertainment lawyer, teacher, deck officer, manager rn case)? Give summary @ -No Was smoking cessation discussed for >3mins.? @ -No Was critical care preformed (if so, how long)? @ -No Were there social determinants of health that impacted care today? How? (Homelessness, low income, unemployed, alcoholism, drug addiction, transportation, low edu. Level, literacy, decrease access to med. care, retirement, rehab)? @ -No Was there de-escalation of care discussed even if they declined (Discuss DNR or withdrawal of care, Hospice)? DNR status @ -No What co-morbidities impacted this encounter? (DM, HTN, Smoking, COPD, CAD, Cancer, CVA, ARF, Chemo, Hep., AIDS, mental health diagnosis, sleep apnea, morbid obesity)? @ -None Was patient admitted / discharged? Hospital course, mention meds given and route, prescriptions, significant lab abnormalities, going to OR and other pertinent info. @ -Upon arrival patient seen and evaluated in bed 15. Thorough history and physical exam was performed. Laboratory studies are conducted. X-rays performed. Twelve-lead EKG is obtained. Results are discussed with patient. At this time the patient was placed in a sling. Instructed to rest the right arm. Follow-up with the orthopedic office. Take Motrin at home for pain and return for any new or worsening symptoms. Patient agreeable plan was discharged in stable condition Undiagnosed new problem with uncertain prognosis? @ -No Drug Therapy requiring intensive monitoring for toxicity (Heparin, Nitro, Insulin, Cardizem)? @ -No Were any procedures done? @ -No Diagnosis/symptom? @ -Acute right shoulder pain, possible AC joint dysfunction Acute, or Chronic, or Acute on Chronic? @ -Acute Uncomplicated (without systemic symptoms) or Complicated (systemic symptoms)? @ -Uncomplicated Side effects of treatment? @ -No Exacerbation, Progression, or Severe Exacerbation? @ -No Poses a threat to life or bodily function? How? (Chest pain, [place], [place], pneumonia, PE, COPD, DKA, ARF, appy, cholecystitis, CVA, Diverticulitis, Homicidal, Suicidal, threat to staff... and all critical care pts) @ -No Disposition Clinical Impression: AC joint pain Disposition: HOME SELF-CARE Condition: Stable Instructions (If sedation given, give patient instructions): Shoulder Pain (ED) Additional Instructions: Wear the sling for comfort. Minimal use of that right arm until you see the orthopedic doctor. I recommend taking Motrin 600 mg every 6 hours. I also recommend taking the muscle relaxer I have prescribed. The orthopedic doctor will have further recommendations so call Saturday to make an appointment. Prescriptions: Cyclobenzaprine [Flexeril] 10 mg PO TID PRN #30 tab PRN Reason: Muscle Spasm Is patient prescribed a controlled substance at d/c from ED?: No Referrals: Maya Villaseñor MD [Primary Care Provider] - 1-2 days Cholo Knowles MD [Medical Doctor] - 1-2 days Time of Disposition: 10:55
[2024-08-01 11:06] VITALS: BP 110/60; PULSE 65
== END 2024-08-01 11:07 | disposition home or self-care (01) ==
LOC: EC 08:27
DX: M25.511 Pain in right shoulder (principal); F17.200 Nicotine dependence, unspecified, uncomplicated
CPT/HCPCS: 93005; 73030; 99283; 96372; J1885